=== PATIENT | male | born 1980 | race Caucasian/White ===

== ENCOUNTER 2017-01-15 17:13 | Emergency (ER) ==
[2017-01-15 17:17] VITALS: BP 132/88; TEMP 99.2; BMI 25.0
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
== END 2017-01-15 18:05 | disposition home or self-care (01) ==
LOC: ED 17:13
DX: L02.413 Cutaneous abscess of right upper limb (principal); F17.210 Nicotine dependence, cigarettes, uncomplicated; Z86.14 Personal history of Methicillin resistant Staphylococcus aureus infection
CPT/HCPCS: 99282

== ENCOUNTER 2017-03-02 13:14 | Outpatient (CLI) | END 2017-03-02 13:15 | disposition home or self-care (01) | LOC: LAB 13:14 | PROVIDERS: ATTEND Nurse Practitioner Family | DX: J02.9 Acute pharyngitis, unspecified (principal) | CPT/HCPCS: 87651; 87880 ==

== ENCOUNTER 2018-07-11 18:35 | Emergency (ER) ==
[2018-07-11 18:37] VITALS: BP 138/89; TEMP 98.7; BMI 20.9
== END 2018-07-11 19:02 | disposition left against medical advice (07) ==
LOC: ED 18:35
DX: J02.9 Acute pharyngitis, unspecified (principal)

== ENCOUNTER 2018-07-12 13:18 | Outpatient (CLI) ==
[2018-07-11 18:37] VITALS: BMI 20.9
== END 2018-07-12 13:19 | disposition home or self-care (01) ==
LOC: FCC-LAB 13:18
PROVIDERS: ATTEND Family Medicine
DX: J02.9 Acute pharyngitis, unspecified (principal)
CPT/HCPCS: 87651